=== PATIENT | male | born 1980 | race Caucasian/White ===

== ENCOUNTER 2020-09-30 20:32 | Emergency (ER) | payer OTHER, SELFPAY ==
--- NOTE | ~2020-09-30 | XR_ITS ---
EXAMINATION: XR ribs RT 2V w CXR 2V EXAM DATE: 09/30/2020 22:40 INDICATION: Initial encounter following injury, with pain of the right chest, ribs. TECHNIQUE: Frontal projection of the upper right ribs, frontal projection of the lower right ribs, ob lique projection of the right ribs, frontal and lateral chest x-ray(s) for interpretation. There is no prior study for comparison. FINDINGS: Probable acute closed posttraumatic nondisplaced right 9th rib fracture anterolaterally. No confluent consolidation, pneumothorax or pleural effusion suspected. IMPRESSION: Probable acute right 9th rib fracture. Reviewed, dictated and finalized at location G.
[2020-09-30 21:56] VITALS: BP 125/73; PULSE 89; RESP 12; TEMP 37.3; O2SAT 99
[2020-09-30 23:45] VITALS: BP 125/85; PULSE 68; RESP 18; TEMP 36.9; O2SAT 100
--- NOTE | 2020-09-30 23:56 | ED.GENADULT ---
HPI - General Adult General Chief complaint: Unspecified Stated complaint: Skateboarding Injury Time Seen by Provider: 09/30/20 23:48 History of Present Illness HPI narrative: Patient 40-year-old gentleman who presents the emergency department chief complaint of right-sided chest pain. Patient reports that his children were skateboarding on a half [place] and he decided to do some skateboarding this evening. The patient reports that he lost control and flew off of the ramp and landed on a box with the right side of his chest. The patient states it hurts whenever he takes a deep breath when he moves around. The patient reports this feels similar if not worse than whenever he has had a rib fracture in the past. Related Data Allergies Allergy/AdvReac Type Severity Reaction Status Date / Time No Known Allergies Allergy Verified 09/30/20 23:46 Review of Systems Review of Systems: Narrative: A 10 system review of systems was completed on the patient and is negative except for what is stated in the HPI. Nursing and ancillary documentation was reviewed. [facility] Social History Social History Gender identity (if verbalized by the patient): Male Exam Narrative: Exam Narrative: GENERAL: Well-appearing, well-nourished, and in no acute distress. HEAD: Normocephalic, atraumatic. EYES: PERRLA and EOMI. ENT: Nares clear, no rhinorrhea or epistaxis. Mucous membranes moist. NECK: Supple. CHEST: Clear to auscultation. No respiratory distress. Tenderness to palpation in the right side of the chest HEART: Regular rate and rhythm. No murmur heard. Normal peripheral pulses. ABDOMEN: Soft, nontender, nondistended, normal active bowel sounds. EXTREMITIES: Normal range of motion. No edema. SKIN: Warm, dry, no rash. NEURO: No focal deficits. Alert and oriented x3. PSYCH: Normal mood and affect. Course Course Emergency Course: Chest x-ray shows evidence of 1/9 rib fracture without evidence of pulmonary contusion without evidence of pneumothorax. Vital Signs Vital signs: Vital Signs Temperature 37.3 C 09/30/20 21:56 Pulse Rate 89 09/30/20 21:56 Respiratory Rate 12 09/30/20 21:56 Blood Pressure 125/73 09/30/20 21:56 Pulse Oximetry 99 09/30/20 21:56 Temperature 36.9 C 09/30/20 23:45 Pulse Rate 68 09/30/20 23:45 Respiratory Rate 18 09/30/20 23:45 Blood Pressure 125/85 09/30/20 23:45 Pulse Oximetry 100 09/30/20 23:45 Medical Decision Making Vital Signs Vital Signs: Vital Signs Temperature 37.3 C 09/30/20 21:56 Pulse Rate 89 09/30/20 21:56 Respiratory Rate 12 09/30/20 21:56 Blood Pressure 125/73 09/30/20 21:56 Pulse Oximetry 99 09/30/20 21:56 Temperature 36.9 C 09/30/20 23:45 Pulse Rate 68 09/30/20 23:45 Respiratory Rate 18 09/30/20 23:45 Blood Pressure 125/85 09/30/20 23:45 Pulse Oximetry 100 09/30/20 23:45 Discharge Plan Discharge Clinical Impression: Closed rib fracture Qualifiers: Encounter type: initial encounter Rib fracture type: single rib Laterality: right Qualified Code(s): S22.31XA - Fracture of one rib, right side, initial encounter for closed fracture Patient Disposition: Home, Self-Care Condition: Stable Instructions: Antibiotic Form, Rib Fracture (ED) Prescriptions: New ibuprofen 800 mg tablet 800 mg PO TID PRN (Reason: pain) Qty: 21 RF: 0 hydrocodone-acetaminophen 5-325 mg tablet 1 tablet PO Q6H PRN (Reason: pain) 3 Days Qty: 12 RF: 0 Follow-up/Referrals: Robin Alarcon MD [Physician] - 1 Week PHYSICIAN,VETERINARY SURGERY TECHNOLOGIST [Primary Care Provider] - Stand Alone Forms: Work/School Release IP Time of Disposition: 00:01
[2020-10-01] MEDS: MORPHINE SULFATE (*CRX) 4 MG/ML INJ IM (00:47)
[2020-10-01] MEDS: KETOROLAC (*BKC) 60 MG/2 ML VIAL IM (00:48)
[2020-10-01 01:59] VITALS: BP 122/79; PULSE 73; RESP 18; O2SAT 98
== END 2020-10-01 02:04 | disposition home or self-care (01) ==
PROVIDERS: Emergency Provider Emergency Medicine
DX: S22.31XA Fracture of one rib, right side, initial encounter for closed fracture (principal); V00.131A Fall from skateboard, initial encounter; Y93.51 Activity, roller skating (inline) and skateboarding
CPT/HCPCS: 71046; 71100; 96372; 99284; J1885; J2270